=== PATIENT | male | born 1975 | race Caucasian/White ===

== ENCOUNTER 2016-08-24 17:45 | Observation (INO) | payer MEDICAID ==
[~2016-08-24] VITALS: Ht 165.1 cm; Wt 63.5 kg
[2016-08-24] MEDS ORDERED: SODIUM CHLORIDE 0.9% 1,000 ML IV ONE (18:01)
[2016-08-24] MEDS ORDERED: LORAZEPAM 2MG/ML CPJ IV ONE ×2 (18:15→19:15)
[2016-08-24] MEDS ORDERED: LORAZEPAM 2MG/ML CPJ ONE (18:16)
[2016-08-24 18:42] LABS: CLARITY URINE CLEAR (CLEAR); COLOR URINE YELLOW (YELLOW); GLUCOSE URINE NEGATIVE (NEGATIVE); KETONES URINE NEGATIVE (NEGATIVE); LEUKOCYTE ESTERASE URINE NEGATIVE (NEGATIVE); NITRITE URINE NEGATIVE (NEGATIVE); OCCULT BLOOD URINE NEGATIVE (NEGATIVE); PH URINE 6.5 (4.5-8.0); PROTEIN URINE TRACE (NEGATIVE); UROBILINOGEN URINE 0.2 E.U./dL (0.2-1.0)
[2016-08-24 18:57] LABS: BASOPHILS % 0.1 % (0.0-2.0); HEMOGLOBIN. 14.1 g/dL (14.0-18.0); LYMPHOCYTES % 16.7 % (20.0-50.0); MEAN CORPUSCULAR HEMOGLOBIN 28.6 pg (28.0-32.0); MEAN CORPUSCULAR VOLUME 85.1 fL (80.0-94.0); MEAN PLATELET VOLUME 6.9 fl (7.4-10.4); MONOCYTES % 4.3 % (2.0-8.0); NEUTROPHILS % 78.9 % (40.0-76.0); PLATELET 384 x1000/uL (130-400); RED BLOOD CELL COUNT 4.93 mill/uL (4.7-6.1); RED CELL DISTRIBUTION WIDTH 14.4 % (11.6-14.6)
[2016-08-24 19:02] LABS: PARTIAL THROMBOPLASTIN TIME 22.2 sec (24.0-34.0); PROTHROMBIN TIME 10.6 sec
[2016-08-24] MEDS ORDERED: LABETALOL HCL 20MG/4ML CARPUJECT IV ONE (19:15)
[2016-08-24 19:39] LABS: *AMPHETAMINES SCREEN URINE PRESUMTIVE POSITIVE (NEGATIVE); *BARBITURATES SCREEN URINE NEGATIVE (NEGATIVE); *BENZODIAZEPINES SCREEN URINE NEGATIVE (NEGATIVE); *COCAINE SCREEN URINE NEGATIVE (NEGATIVE); CANNABINOID URINE SCREEN NEGATIVE (NEGATIVE); METHADONE URINE SCREEN NEGATIVE (NEGATIVE); OPIATES URINE SCREEN NEGATIVE (NEGATIVE); PHENCYCLIDINE URINE SCREEN NEGATIVE (NEGATIVE)
[2016-08-24 19:51] LABS: CARBON DIOXIDE 22 mEq/L (21-32); CHLORIDE 106 mEq/L (98-107); ETHANOL BLOOD < 10 mg/dL
[2016-08-24] MEDS ORDERED: SODIUM CHLORIDE 0.9% 1000ML BAG (SEPSIS BOLUS) IV ONE (20:15)
[2016-08-24 20:45] LABS: CREATINE KINASE 478 IU/L (39-308)
[2016-08-24] MEDS ORDERED: LORAZEPAM 2MG/ML CPJ IV STA (22:12)
[2016-08-25 06:10] VITALS: BP 124/96
[2016-08-25 08:00] VITALS: BP 114/67
[2016-08-25 08:21] VITALS: BP 124/96
[2016-08-25 12:00] VITALS: BP 110/67
[2016-08-25] MEDS ORDERED: MAGNESIUM/ALUMINUM HYDROXIDE/SIMETHICONE 30ML UDC PO PRN (13:15)
[2016-08-25] MEDS ORDERED: ACETAMINOPHEN 650MG SUPP PR PRN (13:15)
[2016-08-25] MEDS ORDERED: DIPHENHYDRAMINE 50MG/ML VIAL IV PRN (13:15)
[2016-08-25] MEDS ORDERED: ACETAMINOPHEN 650MG/20.3ML UDC GT PRN (13:15)
[2016-08-25] MEDS ORDERED: NA PHOS,M-B/NA PHOS,DI-BA ENEMA 118ML PR PRN (13:15)
[2016-08-25] MEDS ORDERED: IPRATROPIUM/ALBUTEROL 0.5-3(2.5)MG/3ML NEB INH PRN (13:15)
[2016-08-25] MEDS ORDERED: CLONIDINE 0.1MG TABLET PO PRN (13:15)
[2016-08-25] MEDS ORDERED: SODIUM CHLORIDE 0.9% INJ 3ML FLUSH IVF SCH (14:00)
[2016-08-25 16:42] LABS: BASOPHILS % 0.3 % (0.0-2.0); EOSINOPHILS % 0.6 % (0.0-5.0); HEMATOCRIT. 43.2 % (42.0-52.0); HEMOGLOBIN. 14.6 g/dL (14.0-18.0); LYMPHOCYTES % 35.8 % (20.0-50.0); MEAN CORPUSCULAR HEMOGLOBIN 28.7 pg (28.0-32.0); MEAN CORPUSCULAR VOLUME 84.9 fL (80.0-94.0); MEAN PLATELET VOLUME 7.1 fl (7.4-10.4); NEUTROPHILS % 52.3 % (40.0-76.0); PLATELET 330 x1000/uL (130-400); RED BLOOD CELL COUNT 5.08 mill/uL (4.7-6.1); RED CELL DISTRIBUTION WIDTH 14.8 % (11.6-14.6)
[2016-08-25 17:13] LABS: CARBON DIOXIDE 27 mEq/L (21-32); CHLORIDE 106 mEq/L (98-107)
== END 2016-08-25 18:40 | disposition left against medical advice (07) ==
LOC: ER 17:52 → EDBD 17:52 → 6WST 21:10 → INTOOBSV 21:10 → ENRESERV 08-25 04:32
PROVIDERS: ADMIT Family Medicine; ATTEND Family Medicine
DX: R41.82 Altered mental status, unspecified (principal); G92 Toxic encephalopathy; F15.10 Other stimulant abuse, uncomplicated; I16.0 Hypertensive urgency; E87.2 Acidosis
CPT/HCPCS: 36415; 70450; 71010; 80053; 80305; 80307; 80329; 81001; 82550; 83605; 85025; 85610; 85730; 93005; 96361; 96374; 96376; 97161; 99291; G0378; G0482; J2060; J3490; J7030

== ENCOUNTER 2021-02-02 18:17 | Emergency (ER) | payer SELFPAY ==
[~2021-02-02] VITALS: Ht 162.6 cm; Wt 80.0 kg
[2021-02-02] MEDS ORDERED: LORAZEPAM 2MG/ML CPJ IV STA (19:17)
[2021-02-02] MEDS ORDERED: SODIUM CHLORIDE 0.9% 1,000 ML IV ONE (19:30)
[2021-02-02 22:02] LABS: BASOPHILS % 0.5 % (0.0-2.0); HEMATOCRIT. 42.7 % (42.0-52.0); HEMOGLOBIN. 14.3 g/dL (14.0-18.0); MEAN CORPUSCULAR HEMOGLOBIN 27.8 pg (28.0-32.0); MEAN CORPUSCULAR VOLUME 83.2 fL (80.0-94.0); MEAN PLATELET VOLUME 6.8 fl (7.4-10.4); MONOCYTES % 5.6 % (2.0-8.0); NEUTROPHILS % 76.9 % (40.0-76.0); PLATELET 522 x1000/uL (130-400); RED BLOOD CELL COUNT 5.14 mill/uL (4.7-6.1)
[2021-02-02 22:07] LABS: CHLORIDE 107 mEq/L (98-107)
[2021-02-02 22:12] LABS: ETHANOL BLOOD < 10 mg/dL
[2021-02-02 23:52] LABS: CLARITY URINE CLEAR (CLEAR); COLOR URINE DARK YELLOW (YELLOW); KETONES URINE NEGATIVE (NEGATIVE); LEUKOCYTE ESTERASE URINE NEGATIVE (NEGATIVE); NITRITE URINE NEGATIVE (NEGATIVE); OCCULT BLOOD URINE TRACE (NEGATIVE); PH URINE 5.5 (4.5-8.0); PROTEIN URINE 1+ (NEGATIVE); SPECIFIC GRAVITY URINE 1.018 (1.005-1.030); UROBILINOGEN URINE 0.2 E.U./dL (0.2-1.0)
[2021-02-03 00:01] LABS: METHADONE URINE SCREEN NEGATIVE (NEGATIVE)
[2021-02-03 00:02] LABS: *AMPHETAMINES SCREEN URINE PRESUMTIVE POSITIVE (NEGATIVE); *BARBITURATES SCREEN URINE NEGATIVE (NEGATIVE); *BENZODIAZEPINES SCREEN URINE NEGATIVE (NEGATIVE); *COCAINE SCREEN URINE NEGATIVE (NEGATIVE); CANNABINOID URINE SCREEN NEGATIVE (NEGATIVE); OPIATES URINE SCREEN NEGATIVE (NEGATIVE); PHENCYCLIDINE URINE SCREEN NEGATIVE (NEGATIVE)
[2021-02-03] MEDS ORDERED: LORAZEPAM 2MG/ML CPJ IV SCH (01:45)
[2021-02-03 05:28] VITALS: BP 136/91
== END 2021-02-03 07:37 | disposition home or self-care (01) ==
LOC: ER 18:17
DX: T43.621A Poisoning by amphetamines, accidental (unintentional), initial encounter (principal); T43.641A Poisoning by ecstasy, accidental (unintentional), initial encounter; Z20.822 Contact with and (suspected) exposure to COVID-19; R41.82 Altered mental status, unspecified; R03.0 Elevated blood-pressure reading, without diagnosis of hypertension; F15.159 Other stimulant abuse with stimulant-induced psychotic disorder, unspecified; F16.159 Hallucinogen abuse with hallucinogen-induced psychotic disorder, unspecified; D75.839 Thrombocytosis, unspecified; Y92.89 Other specified places as the place of occurrence of the external cause
CPT/HCPCS: 36415; 71045; 80053; 80305; 80307; 80320; 80329; 81003; 82962; 85025; 93005; 96361; 96374; 99285; C9803; J2060; J7030; U0003; U0005; G0480